=== PATIENT | male | born 1940 | race Caucasian/White ===

== ENCOUNTER 2018-10-22 18:57 | Inpatient (IN) | payer MEDICARE, OTHER ==
[2018-10-22] MEDS ORDERED: Bisacodyl 5 MG TAB PO PRN (23:28)
[2018-10-22] MEDS ORDERED: Zolpidem Tartrate 5 MG TAB PO PRN (23:28)
[2018-10-22] MEDS ORDERED: Acetaminophen 650 MG Suppository PR PRN (23:28)
[2018-10-22] MEDS ORDERED: Acetaminophen 325 MG TAB PO PRN (23:28)
[2018-10-22] MEDS ORDERED: Guaifenesin DM 100-10/5 ML UDCUP PO PRN (23:28)
[2018-10-22] MEDS ORDERED: Ondansetron PF 4 MG/2 ML Vial IVP PRN (23:28)
[2018-10-22] MEDS ORDERED: Ondansetron ODT 4 MG TAB PO PRN (23:28)
[2018-10-22] MEDS ORDERED: Sodium Chloride 0.9% 1,000 ML IV SCH (23:30)
[2018-10-23] MEDS ORDERED: Clopidogrel Bisulfate 75 MG TAB ONE (00:20)
[2018-10-23 02:20] VITALS: BMI 22.6
[2018-10-23 05:59] LABS: Anion Gap 14 mmol/L (10-20); BUN (Urea Nitrogen) 14 mg/dL (8.4-25.7); Calc. Creatinine Clearance 74 mL/min (70-130); Calcium 8.8 mg/dL (7.8-10.44); Carbon Dioxide 26 mmol/L (23-31); Chloride 86 mmol/L (98-107); Estimated GFR-MDRD Greater than 90; Glucose 135 mg/dL (83-110); Potassium 3.6 mmol/L (3.5-5.1); Sodium 122 mmol/L (136-145)
[2018-10-23 06:12] LABS: Band 4 % (5-11); Hemoglobin 13.8 g/dL (14.0-18.0); Lymphocytes 16 % (21-51); MDiff Complete? YES; Mean Corpuscular Hemoglobin 31.8 pg (27.0-31.0); Mean Corpuscular Volume 90.9 fL (78.0-98.0); Mean Platelet Volume 6.3 fL (7.4-10.4); Monocytes 8 % (0-10); Neutrophil 71 % (42-75); PLT Morphology Comment Appears Adequate; Platelet Count 283 thou/uL (130-400); RBC Morphology Normal; Reactive Lymphocytes 1 % (0-10); Red Blood Cell (RBC) Count 4.35 mill/uL (4.70-6.10); White Blood Cell (WBC) Count 8.8 thou/uL (4.8-10.8)
[2018-10-23] MEDS ORDERED: Dextrose 50% Abboject 50 ML SYRINGE SLOW IVP PRN (07:21)
[2018-10-23] MEDS ORDERED: HumaLOG 300 UNITS/3 ML VIAL SC PRN (07:21)
[2018-10-23] MEDS ORDERED: Dextrose 5% in Water 1,000 ML IV PRN (07:21)
[2018-10-23] MEDS: Famotidine/PF 20 mg/2ml Vial SLOW IVP SCH ×2 (07:51→20:41)
[2018-10-23 08:13] LABS: ALT (SGPT) 7 U/L (8-55); AST (SGOT) 16 U/L (5-34); Albumin 4.5 g/dL (3.4-4.8); Alkaline Phosphatase 80 U/L (40-150); Anion Gap 15 mmol/L (10-20); BUN (Urea Nitrogen) 13 mg/dL (8.4-25.7); Bilirubin, Total 0.7 mg/dL (0.2-1.2); Calc. Creatinine Clearance 71 mL/min (70-130); Calcium 9.3 mg/dL (7.8-10.44); Carbon Dioxide 27 mmol/L (23-31); Chloride 85 mmol/L (98-107); Estimated GFR-MDRD 89; Globulin 3.1 g/dL (2.4-3.5); Glucose 170 mg/dL (83-110); Protein, Total 7.6 g/dL (5.8-8.1); Sodium 123 mmol/L (136-145)
--- NOTE | 2018-10-23 08:17 | HP ---
CHIEF COMPLAINT: Transient ischemic attack transfer. HISTORY OF PRESENT ILLNESS: This 77-year-old male with past medical history of diabetes mellitus type 2, hypertension, hyperlipidemia, GERD. The patient is coming in with a chief complaint of not able to speak or pronounce words. So per the patient, he stated that two days prior to the day of admission, he was trying to read something of his iPhone to his and he was having difficulty pronouncing the words. The next morning, he tried to text something to his daughter and he was not able to text appropriately. He was having difficulty finding the words to text to his daughter. He tried for about 20 minutes and he was frustrated with himself, so he stopped trying to send a text message. The patient states that the next morning, he tried again and he was able to send a text message without any problem and he has been speaking fine without any difficulties; however, this was very worrisome to him, so we prompted him to come to the hospital. At this point, the patient denies any neurological symptoms. The patient states that while this whole neurological symptom was going on, he had a mild headache, which he took Excedrin for it and it actually resolved his headaches. Otherwise, the patient does not endorse any facial droop or slurring of speech, difficulty with moving his upper extremity or lower extremities. The patient denies any chest pain, palpitations, abdominal pain, dysuria, hematuria, constipation, or diarrhea. Of note, per sign-out, the patient had a previous history of CVA in the past where the patient had ischemic changes around the Broca's region. REVIEW OF SYSTEMS: All systems have been reviewed and are negative at this time. PAST MEDICAL HISTORY: Hypertension, hyperlipidemia, GERD. FAMILY HISTORY: Reviewed and noncontributory to this visit. PAST SURGICAL HISTORY: Suprapubic prostatectomy in 2009, ORIF of left ankle, tonsillectomy. PSYCHIATRIC HISTORY: No previous psych history. SOCIAL HISTORY: The patient denies any alcohol. Denies any drug use. Denies any smoking history. ALLERGIES: THE PATIENT IS ALLERGIC TO CIPROFLOXACIN, HYDROCHLOROTHIAZIDE. CURRENT MEDICATIONS: The patient takes 1. Ascorbic acid. 2. Chlorthalidone 25 mg. 3. Glipizide 5 mg. 4. Lisinopril 20 mg. 5. Metformin 500 mg. 6. Omeprazole 20 mg. PHYSICAL EXAMINATION: VITAL SIGNS: Patient's blood pressure is 172/84, heart rate is 73, respiratory rate is 21, temperature is 98.6, O2 saturation is 97. GENERAL APPEARANCE: The patient appears his stated age. Lying comfortably in bed. Does not appear to be in any acute distress. The patient is able to speak in full sentences. Does not appear to have any focal neurologic deficits at this time. The patient is alert and oriented x3. HEENT: Normocephalic, atraumatic. Pupils are equally round and reactive to light. Extraocular movements are intact. No scleral icterus. No conjunctival pallor. NECK: Trachea is midline. Full range of motion. Supple. No tenderness. No JVD is noted. LUNGS: Clear to auscultation bilaterally. No wheezing, no rales, no rhonchi appreciated. CARDIAC: Positive S1 and S2. Regular rate and rhythm. No murmurs, no gallops, no rubs appreciated. ABDOMEN: Soft, nontender, and nondistended. Positive bowel sounds in all quadrants. No peritoneal signs. No palpable masses. EXTREMITIES: The patient has 5/5 upper extremity strength and 5/5 lower extremity strength. No edema noted. The patient to have good strength and good pulses bilaterally. NEUROLOGIC: Cranial nerves II through XII grossly intact. No neurologic deficits noted. NIH Stroke Scale is zero. SKIN: Warm, dry, and intact. PSYCH: Alert, oriented x3. Normal affect. DIAGNOSTIC DATA: EK-lead EKG showed normal sinus rhythm with a rate of 75. LABS: WBC is 8.8, hemoglobin is 13.8, hematocrit is 39.6, MCV is 90.9, RDW is 11.0. Chemistry: Sodium is 122, potassium is 3.6, chloride is 86, carbon dioxide of 26, creatinine is 0.80, glucose is 135. ASSESSMENT AND PLAN: This is a 77-year-old male being admitted for 1. Difficulty with pronunciation and stroke-like symptoms, likely due to transient ischemic attack, to rule out cerebrovascular accident. At this time, we have ordered MRI of the head. We have consulted Neurology. We will get morning labs. We will get an echo, we will follow up on these labs and we will continue to follow with Neurology's recommendations. The patient has been started on aspirin, atorvastatin. We will continue the patient on these medications. We will also get PT, OT eval. 2. Hyponatremia of 122. The patient's sodium is currently 122. It is unclear if the patient's sodium could have been contributing to the patient's symptoms. At this time, we are going to work the patient up for hyponatremia. We will hold of fluids at this time until we obtain the patient's labs of serum osmo, urine osmo, and sodium in the urine, to rule out SIADH. We will find out the cause of patient's hyponatremia and we will treat accordingly. 3. Hypertension. We will continue patient on his home medications and we will monitor the patient's blood pressures closely. 4. Gastroesophageal reflux disease. We will continue patient on proton pump inhibitors. 5. Diabetes mellitus type 2. At this point, we will continue patient on insulin sliding scale. We will monitor the patient's blood glucose closely and we will try and keep the patient's glucose between 140 to 180. We will hold the patient's metformin. 6. DVT/GI prophylaxis. Job ID: [id number]
[2018-10-23] MEDS: Famotidine 20 MG TAB PO SCH ×2 (08:55→20:47)
[2018-10-23] MEDS: Multivit, Therapeutic 1 TAB PO SCH (08:56)
[2018-10-23] MEDS: Lisinopril 20 MG TAB PO SCH (08:57)
[2018-10-23] MEDS: Fish Oil 1,000 MG CAP PO SCH (08:58)
[2018-10-23] MEDS: Enoxaparin Sodium 40 MG/0.4 ML SYRINGE SC SCH (08:59)
[2018-10-23] MEDS ORDERED: Chlorthalidone 25 MG TAB PO SCH (09:00)
[2018-10-23] MEDS ORDERED: Ascorbic Acid 500 mg Chewable Tablet PO SCH (09:00)
--- NOTE | 2018-10-23 11:59 | PDOC.PN ---
- Subjective Encounter Start Date: 10/23/18 Encounter Start Time: 11:00 Awake, alert and talkative. No neurologic complaints or deficits presently. MRI not yet performed. When asked about his serum Na, he recalls being told in the past that his Na was low. Started chlorthalidone 8 or 9 days ago. - Objective Vital Signs & Weight: Vital Signs (12 hours) Temp Pulse Resp BP Pulse Ox 10/23/18 07:45 98.6 F 70 16 141/82 H 95 10/23/18 04:00 99.0 F 68 18 116/75 98 10/23/18 01:10 97.7 F 80 16 132/72 96 Weight Weight 149 lb 4 oz I&O: 10/22/18 10/23/18 10/24/18 06:59 06:59 06:59 Intake Total 360 240 Balance 360 240 Result Diagrams: 10/23/18 05:02 10/23/18 07:35 Additional Labs: Accuchecks 10/23/18 10/23/18 10:38 05:47 POC Glucose 220 H 142 H Phys Exam - Physical Examination Constitutional: NAD HEENT: PERRLA, sclera anicteric Neck: supple, full ROM Respiratory: clear to auscultation bilateral Cardiovascular: RRR Gastrointestinal: soft, non-tender Musculoskeletal: no edema Neurological: non-focal, moves all 4 limbs Psychiatric: normal affect, A&O x 3 Skin: no rash Dx/Plan (1) Hyponatremia Code(s): E87.1 - HYPO-OSMOLALITY AND HYPONATREMIA Status: Acute Comment: Possibly related to chlorthalidone. Hold for now. Request nephrology assistance. Schedule serial BMPs. Hyponatriemia may have also contributed to neurologic symptoms. Urine Na and Urine osm ordered but not yet resulted. Presently on NS at 75 ml/hr (2) Type 2 diabetes mellitus Status: Chronic (3) GERD (gastroesophageal reflux disease) Code(s): K21.9 - GASTRO-ESOPHAGEAL REFLUX DISEASE WITHOUT ESOPHAGITIS Status: Chronic Comment: Continue PPI (4) TIA (transient ischemic attack) Code(s): G45.9 - TRANSIENT CEREBRAL ISCHEMIC ATTACK, UNSPECIFIED Status: Acute Comment: Continue workup (MRI), neuro consult. Anticipate daily ASA and statin. - Plan cont current plan of care, PT/OT * See above. Do not anticipate discharge today secondary to ongoing TIA workup and hyponatremia
[2018-10-23] MEDS: HumaLOG 300 UNITS/3 ML VIAL SC PRN ×2 (12:04→17:52)
[2018-10-23 13:46] LABS: ALT (SGPT) 7 U/L (8-55); AST (SGOT) 15 U/L (5-34); Albumin 4.4 g/dL (3.4-4.8); Alkaline Phosphatase 77 U/L (40-150); Anion Gap 15 mmol/L (10-20); BUN (Urea Nitrogen) 12 mg/dL (8.4-25.7); Bilirubin, Total 0.5 mg/dL (0.2-1.2); Calc. Creatinine Clearance 75 mL/min (70-130); Calcium 9.2 mg/dL (7.8-10.44); Carbon Dioxide 25 mmol/L (23-31); Chloride 86 mmol/L (98-107); Estimated GFR-MDRD Greater than 90; Globulin 2.8 g/dL (2.4-3.5); Glucose 139 mg/dL (83-110); Potassium 3.7 mmol/L (3.5-5.1); Protein, Total 7.2 g/dL (5.8-8.1); Sodium 122 mmol/L (136-145)
--- NOTE | 2018-10-23 13:53 | MRI ---
MRI BRAIN NONCONTRAST: HISTORY: TIA. FINDINGS: There is no evidence of acute intracranial hemorrhage or infarct. Ventricles appear normal in size, shape, and position. Mild diffuse cortical trophy. Small foci of susceptibility within the left frontal cortex and subcortical white matter are in areas of subtle encephalomalacia on the FLAIR and T2 images and likely related to old ischemic insult. No mass effect or shift of midline structures. IMPRESSION: Chronic-type findings as detailed above. No acute intracranial abnormalities are demonstrated. POS: JOHN
[2018-10-23 17:10] LABS: Anion Gap 16 mmol/L (10-20); BUN (Urea Nitrogen) 12 mg/dL (8.4-25.7); Calc. Creatinine Clearance 67 mL/min (70-130); Calcium 9.1 mg/dL (7.8-10.44); Carbon Dioxide 24 mmol/L (23-31); Chloride 86 mmol/L (98-107); Estimated GFR-MDRD 83; Glucose 170 mg/dL (83-110); Potassium 3.5 mmol/L (3.5-5.1); Sodium 122 mmol/L (136-145)
[2018-10-23 18:50] LABS: Osmolality, Urine 413 mOsm/kg (300-900); Sodium, Urine 81 mmol/L (Not Available)
[2018-10-23 20:08] LABS: ALT (SGPT) 8 U/L (8-55); AST (SGOT) 15 U/L (5-34); Alkaline Phosphatase 69 U/L (40-150); Anion Gap 12 mmol/L (10-20); BUN (Urea Nitrogen) 13 mg/dL (8.4-25.7); Bilirubin, Total 0.3 mg/dL (0.2-1.2); Calc. Creatinine Clearance 71 mL/min (70-130); Calcium 8.6 mg/dL (7.8-10.44); Carbon Dioxide 26 mmol/L (23-31); Chloride 87 mmol/L (98-107); Estimated GFR-MDRD 89; Globulin 2.5 g/dL (2.4-3.5); Glucose 166 mg/dL (83-110); Potassium 3.3 mmol/L (3.5-5.1); Protein, Total 6.5 g/dL (5.8-8.1); Sodium 122 mmol/L (136-145)
[2018-10-23] MEDS: Atorvastatin Calcium 40 MG TAB PO SCH (20:47)
--- NOTE | 2018-10-23 20:56 | ULT ---
CAROTID ULTRASOUND: 10/23/18 HISTORY: Transient ischemic attack. COMPARISON: None. TECHNIQUE: Barnett scale, color flow, doppler imaging with spectral waveform analysis performed of the carotid and vertebral arteries. FINDINGS: RIGHT CAROTID: There is calcified plaque in the right carotid bifurcation and proximal internal carotid arteries. Pe ak systolic velocity in the common carotid artery is 139.6 cm/s. Peak systolic velocity in the inter nal carotid artery is 85.4 cm/s. Systolic ICA/CCA ratio is 0.61. LEFT CAROTID: Atherosclerotic disease in the left carotid bifurcation. Peak systolic velocity in the common carotid artery is 144.0 cm/s. Peak systolic velocity in the internal carotid artery is 131.2 cm/s. Systolic ICA/CCA ratio is 0.91. Antegrade flow in bilateral vertebral arteries. IMPRESSION: Increased velocities in both carotid arteries suggesting moderate (50-69%) stenosis. Better interroga tion with CT angiogram of the neck is recommended. POS: JOHN
[2018-10-23 22:01] LABS: Anion Gap 13 mmol/L (10-20); BUN (Urea Nitrogen) 13 mg/dL (8.4-25.7); Calc. Creatinine Clearance 76 mL/min (70-130); Calcium 8.8 mg/dL (7.8-10.44); Carbon Dioxide 25 mmol/L (23-31); Chloride 85 mmol/L (98-107); Estimated GFR-MDRD Greater than 90; Glucose 132 mg/dL (83-110); Magnesium 2.2 mg/dL (1.6-2.6); Potassium 3.2 mmol/L (3.5-5.1); Sodium 120 mmol/L (136-145)
--- NOTE | 2018-10-23 22:40 | CON ---
DATE OF CONSULTATION: TYPE OF CONSULTATION: Nephrology. REASON FOR CONSULTATION: Hyponatremia. HISTORY OF PRESENT ILLNESS: This is a 77-year-old gentleman, being followed at [facility] who presented to the hospital with altered mental status. The patient was noted to have a sodium of 122. The patient had altered mental status as well. The patient was started on normal saline without any improvement in sodium, I was consulted at 2 p.m. At this time, the patient denies no headache, numbness, tingling, or weakness. Denies any nausea, vomiting, or chest pain. PAST MEDICAL HISTORY: Hypertension, GERD, hyperlipidemia, history of prostate cancer, left ankle ORIF, tonsillectomy, history of prostatectomy and prostate cancer, lymph nodes negative. SOCIAL HISTORY: No alcohol or drug use. FAMILY HISTORY: Negative for ESRD. ALLERGIES: REVIEWED. MEDICATIONS: Home medication list reviewed. REVIEW OF SYSTEMS: A 15-point review of system was performed, negative except what is noted above. GENERAL: HEAD: NECK: No swelling or lumps. NOSE: No epistaxis or discharge. EYES: No diplopia or pain. 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 NEUROPSYCHIATIC SYSTEMS: No suicidal ideation. No ideation. SKIN: Denies any rash or ulcer. CONSTITUTIONAL: No fever or chills. PHYSICAL EXAMINATION: GENERAL: The patient is awake and alert. VITAL SIGNS: Afebrile, pulse 75, breathing 16, blood pressure 147/80. GENERAL APPEARANCE AND MENTAL STATUS: Fair. HEAD/NECK: Normocephalic. Atraumatic. EYES: EOMI. No deformity. EARS: Clear. No ulcers. NOSE: Intact. No lesions. MOUTH: Clear. No discharge. THROAT: Clear. No exudate. LUNGS: Clear. No crackles. CARDIAC: S1, S2. No rub. ABDOMEN: Benign. Bowel sounds positive. GENITALIA/RECTUM: Francis absent. BACK/EXTREMITIES: Edema 0+. NEUROLOGICAL: Alert and motor intact. SKIN: LYMPHATICS: LABORATORY DATA: Labs show sodium 122 and serum osmolality 275 ASSESSMENT AND PLAN: 1. Hyponatremia, most likely because of syndrome of inappropriate antidiuretic hormone secretion in the setting of omeprazole and chlorthalidone, which I will stop. Follow sodium every 2 hours. 2. Hypertension, stable. 3. Add calcium-channel saray. No indication for dialysis at this time. Job ID: [id number]
[2018-10-23] MEDS ORDERED: Potassium Chloride 20 MEQ TAB PO SCH (23:00)
[2018-10-23] MEDS ORDERED: Tolvaptan 15 MG TAB PO SCH (23:00)
--- NOTE | 2018-10-24 01:41 | CON ---
DATE OF CONSULTATION: 10/23/2018 CHIEF COMPLAINT: TIA. HISTORY OF PRESENT ILLNESS: The patient is a 77-year-old man, who reports that 2 days ago he had an incidence where he was in just texting his daughter, he could hear the words, but he had trouble composing the text, he kept putting the wrong words and difficulty connecting data. He also had moderate headache which lasted 2 hours. He took Excedrin and this headache was on top of his head. He had a similar event on 07-04-18. He was reading an article, and he couldn't connect words, or read it right. This lasted 20 to 30 minutes. No history of weakness, numbness, vision changes, dizziness or associated weakness. He also checked his blood pressures, he did have systolics in the 170s and recently after he went to his physician, changes were made to his medications, his blood pressures are better in the 120s. 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 PAST MEDICAL HISTORY: Previous medical histories are hypertension, diabetes, and gastroesophageal reflux disease. He has had GI bleeds in the past and was told he had slits in the stomach which have improved after omeprazole was started and he has premature atrial contractions. SOCIAL HISTORY: His had dementia. He used to work in [employer]. 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 He drinks one beer per week or month. He last smoked 30 years ago. He is a primary caregiver for his . MEDICATIONS: As noted in the chart and he does take aspirin 81 mg per day for his heart for several years. ALLERGIES: HE IS ALLERGIC TO CIPRO AND HYDROCHLOROTHIAZIDE. HE HAD LEG MUSCLE CRAMPS. FAMILY HISTORY: His mother at 66 from Hodgkin's. Father at 84 from stroke and atherosclerosis. He has 2 daughters 50 and 45, both are healthy. PAST SURGICAL HISTORY: He has had suprapubic prostatectomy in 2009 and fracture repair of the left ankle and tonsillectomy. REVIEW OF SYSTEMS: PULMONARY: Normal. CARDIAC: Positive premature atrial contractions. NEUROLOGICAL: Positive for difficulty with speech and writing. PSYCHIATRIC: Negative. GI: Positive for gastroesophageal reflux disease. URINARY: Positive for urinary frequency due to prostate problems. DERMATOLOGIC: Normal. LABORATORY DATA: White count 8.8, hemoglobin 13.8, hematocrit 39.6, platelets 283. Sodium 122, potassium 3.7, chloride 86, bicarb 25, BUN 12, creatinine 0.79. His MRI was complicated. MRI report shows chronic finding with small focus of susceptibility within the left frontal cortex and subcortical white matter in areas of subtle encephalomalacia likely due to old ischemic insult. There were no acute intracranial abnormalities noted. PHYSICAL EXAMINATION: VITAL SIGNS: Blood pressure 141/82, pulse 70, temperature 98.6, respiratory rate 16. GENERAL APPEARANCE: Well-built, well-nourished, very energetic gentleman, sitting up in bed. CHEST: Clear vesicular breathing. CARDIOVASCULAR: S1 and S2 heard. No murmurs. ABDOMEN: Soft. No organomegaly. NEUROLOGIC: Higher intellectual functions are normal. Cranial nerves 2 through 12, normal extraocular movements. Normal pupillary reaction. No facial asymmetry. Tongue midline. No atrophy noted. Normal sensation of face bilaterally. Normal elevation of palate. Motor examination, bulk normal. Tone normal. Strength 5/ 5 throughout in upper and lower extremities in iliopsoas, hamstrings, quadriceps, ankle dorsiflexion, plantar flexion, deltoid, biceps, triceps, wrist extension and flexion, and finger extension and flexion. Deep tendon reflexes are 2+ throughout in upper and lower extremities. Sensory, normal to touch and proprioception. Cerebellar, normal [id number] and [id number]. IMPRESSION: The patient with transient ischemic attack most likely related to his blood pressure fluctuations and he has the same symptoms since June and this is mostly related to his language function and particularly difficulty with typing or reading. His MRI does not show any evidence of acute infarct. His neurological examination is normal. TREATMENT RECOMMENDATIONS: Please complete his workup including echocardiogram if not performed recently and carotid dopplers and if all these negative, the patient be able to be discharged home under the care of his athletic training internship and please increase his aspirin to 325 mg per day. We will see him as needed. Job ID: [id number] [facility]
[2018-10-24 05:11] LABS: #Basophils 0.1 thou/uL (0.0-0.2); #Eosinphils 0.2 thou/uL (0.0-0.7); #Monocytes 0.9 thou/uL (0.11-0.59); #Neutrophils 6.4 thou/uL (1.40-6.50); %Basophils 0.6 % (0.0-1.0); %Eosinophils 2.3 % (0.0-10.0); %Lymphocytes 20.9 % (21.0-51.0); %Neutrophils 67.2 % (42.0-75.0); Hemoglobin 13.7 g/dL (14.0-18.0); Mean Corpuscular HGB CONC 35.4 g/dL (32.0-36.0); Mean Corpuscular Hemoglobin 31.9 pg (27.0-31.0); Mean Corpuscular Volume 90.2 fL (78.0-98.0); Mean Platelet Volume 6.2 fL (7.4-10.4); Platelet Count 289 thou/uL (130-400); RBC Distribution Width 10.9 % (11.5-14.5); Red Blood Cell (RBC) Count 4.28 mill/uL (4.70-6.10); White Blood Cell (WBC) Count 9.6 thou/uL (4.8-10.8)
[2018-10-24 05:26] LABS: Anion Gap 15 mmol/L (10-20); BUN (Urea Nitrogen) 16 mg/dL (8.4-25.7); Calc. Creatinine Clearance 71 mL/min (70-130); Calcium 9.1 mg/dL (7.8-10.44); Carbon Dioxide 24 mmol/L (23-31); Cardiac Risk 5.1 (Less than 4.5); Chloride 89 mmol/L (98-107); Cholesterol 224 mg/dl (< 200 Desired); Estimated GFR-MDRD 90; Glucose 151 mg/dL (83-110); HDL Cholesterol 44 mg/dL (>60 Neg Risk); LDL Cholesterol, Calculated 129 mg/dL; Potassium 3.9 mmol/L (3.5-5.1); Sodium 124 mmol/L (136-145); Triglycerides 255 mg/dL (Less than 150)
[2018-10-24] MEDS: HumaLOG 300 UNITS/3 ML VIAL SC PRN ×3 (06:20→17:20)
--- NOTE | 2018-10-24 10:01 | PRG ---
DATE OF SERVICE: 10/24/2018 SUBJECTIVE: The patient is seen and examined at the bedside. He is feeling better. He does not have much complaints to offer. OBJECTIVE: VITAL SIGNS: Blood pressure 165/105, temperature is 98.3, respiratory rate is 14, pulse is 83, O2 saturation is 96% on room air. HEENT: His head is atraumatic and normocephalic. Eyes are PERRLA. Sclerae are nonicteric. Oral mucosa is moist. NECK: Supple. No lymphadenopathy. Thyroid is not palpable. LUNGS: Clear. HEART: S1 and S2, normal. No S3. No S4. No murmur. ABDOMEN: Soft, nontender, nondistended. Bowel sounds are present. No organomegaly. EXTREMITIES: No clubbing, cyanosis, or edema. NEUROLOGIC: He is alert and oriented x4. There is no any motor or sensory deficits present. Cranial nerves are intact. LABORATORY DATA: Labs showed white count of 9.6, hemoglobin 13.7, hematocrit 32.6, platelet count is 289. Sodium of 124, potassium 3.9, chloride 89, CO2 of 24, BUN 16, creatinine 0.83, glycemia is ranging from 132 to 170, triglycerides 255, total cholesterol 224, LDL 129, and HDL 44. Urine osmolality 413 and his sodium in the urine is 81. IMPRESSION: 1. Hyponatremia felt to be syndrome of inappropriate antidiuretic hormone secretion. Dr. Manzo is managing. The patient is on fluid restriction orally to 800 mL per 24 hours. We will continue that. We will continue serial levels of sodium per his order. 2. Carotid artery stenosis changes on ultrasound. We will request CT angiogram for tomorrow morning. 3. Type 2 diabetes mellitus. We will make some adjustments to his regimen to get better control of his glycemia. 4. Transient ischemic attack, acute, resolved. Seen by neurologist, who recommends to continue his workup. We are obtaining his echocardiogram results from previous facility, where he had his echo done recently and this is still pending. He is on increased dose of aspirin to 325 mg once a day, and he is started on high dose of atorvastatin 80 mg once a day. We will continue his PT and OT. Continue his fluid restriction orally as per Dr. Manzo's order and CT angiogram of his neck will be done tomorrow morning. Job ID: [id number]
[2018-10-24] MEDS: Fish Oil 1,000 MG CAP PO SCH (10:04)
[2018-10-24] MEDS: Multivit, Therapeutic 1 TAB PO SCH (10:05)
[2018-10-24] MEDS: Enoxaparin Sodium 40 MG/0.4 ML SYRINGE SC SCH (10:05)
[2018-10-24] MEDS: Lisinopril 20 MG TAB PO SCH (10:07)
[2018-10-24] MEDS: Famotidine/PF 20 mg/2ml Vial SLOW IVP SCH ×2 (10:08→20:21)
[2018-10-24] MEDS: Famotidine 20 MG TAB PO SCH ×2 (11:53→20:21)
[2018-10-24 13:09] LABS: Anion Gap 14 mmol/L (10-20); BUN (Urea Nitrogen) 15 mg/dL (8.4-25.7); Calc. Creatinine Clearance 65 mL/min (70-130); Calcium 9.6 mg/dL (7.8-10.44); Carbon Dioxide 26 mmol/L (23-31); Chloride 89 mmol/L (98-107); Estimated GFR-MDRD 81; Glucose 175 mg/dL (83-110); Potassium 3.9 mmol/L (3.5-5.1); Sodium 125 mmol/L (136-145)
--- NOTE | 2018-10-24 13:51 | PRG ---
DATE OF SERVICE: 10/24/2018 SUBJECTIVE: A 77-year-old gentleman, being seen for hyponatremia. The patient denies any nausea, vomiting, or chest pain. OBJECTIVE: CONSTITUTIONAL: On examination, the patient is awake, alert. VITAL SIGNS: Afebrile, pulse 65, breathing is 16, and blood pressure 161/85. GENERAL APPEARANCE AND MENTAL STATUS: Fair. HEAD/NECK: Normocephalic. Atraumatic. EYES: EOMI. No deformity. EARS: Clear. No ulcers. NOSE: Intact. No lesions. MOUTH: Clear. No discharge. THROAT: Clear. No exudate. LUNGS: Clear. No crackles. CARDIAC: S1, S2. No rub. ABDOMEN: Benign. Bowel sounds positive. GENITALIA/RECTUM: Francis absent. BACK/EXTREMITIES: Edema 0+. NEUROLOGICAL: Alert and motor intact. LABORATORY DATA: Labs show sodium is 125. ASSESSMENT AND PLAN: 1. Hyponatremia, improved. 2. Chronic kidney disease, stage 2, stable. 3. Hypertension, stable. Increase dose of lisinopril as needed and add amlodipine. Job ID: [id number]
--- NOTE | 2018-10-24 14:58 | PRG ---
DATE OF SERVICE: 10/24/2018 CHIEF COMPLAINT: Transient changes in his language function. INTERVAL HISTORY: The patient reports he is doing well. He stated that his triglycerides are elevated usually when he has abnormal glucose levels and elevated hemoglobin A1c. Overall, he is feeling well. LABORATORY DATA: Current lab reports; white count 9.6, hemoglobin 13.7, hematocrit 38.6, and platelets are 289. Chemistry; sodium 125, potassium 3.9, chloride 89, bicarb 26, carbon dioxide 26, BUN 15, creatinine 0.91. Triglycerides are at 255, and cholesterol 224, and he had a carotid Doppler study completed, which showed increased velocities in both carotid arteries suggesting moderate 50% to 69% stenosis. PHYSICAL EXAMINATION: VITAL SIGNS: The patient's blood pressure was 161/85, pulse rate is 83, and temperature 98.3. GENERAL APPEARANCE: Well-built and well-nourished gentleman, who is fairly active. NEUROLOGIC: Cranial nerves; no facial asymmetry noted. Normal extraocular movements. Tongue midline. Motor; bulk, normal and tone, normal. Strength is 5/5 in upper and lower extremities. IMPRESSION: The patient is a 77-year-old man, who is experiencing transient language difficulties and had two such episodes, one in June and one currently. His examination is normal. His MRI scan is negative for any acute ischemic event. Based on the carotid doppler results, it is thapa to complete a CT angiogram of head and neck. RECOMMENDATIONS: 1. CTA of the head and neck. 2. Increase aspirin to 325 mg per day. 3. I advised the patient to follow up with his tongsman once he was discharged from here and he needs to have further workup for his premature atrial contractions. Please call Neurology if you have any further questions. Job ID: [id number]
--- NOTE | 2018-10-24 15:07 | CT ---
CT HEAD WITHOUT IV CONTRAST CT ANGIOGRAM HEAD WITH IV CONTRAST AND 3D RECONSTRUCTIONS CT ANGIOGRAM NECK WITH IV CONTRAST AND 3D RECONSTRUCTIONS: DATE: 10/24/2018. HISTORY: Bilateral carotid stenosis noted on ultrasound examination. Recent MRI obtained 1 day ago demonstrat e no acute infarction. FINDINGS: NONCONTRAST CT HEAD: There are low-density areas seen in the periventricular white matter greater in the left cerebral hem isphere which are nonspecific but likely reflective of mild chronic small-vessel ischemic changes. T here is no evidence of an acute infarction, hemorrhage, mass effect, or midline shift. The ventricul ar system is normal in size, shape, and position. There is mild cerebral volume loss. The visualize d paranasal sinuses and mastoid air cells are clear. Calvarial structures are intact. CT ANGIOGRAM HEAD WITH IV CONTRAST AND 3D RECONSTRUCTIONS: There are atherosclerotic calcifications and plaque seen within the carotid siphons bilaterally with mild atherosclerotic irregularity involving the M1 segment of the right middle cerebral artery, but n o focal significant stenosis is seen involving the bilateral middle cerebral or anterior cerebral art eries. The distal bilateral vertebral arteries, basilar artery, as well as posterior cerebral arteri es are patent. No branch occlusion is seen No aneurysm is seen within the limitations of the techni que of this examination. 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 CT ANGIOGRAM NECK WITH IV CONTRAST AND 3D RECONSTRUCTIONS: Vascular calcifications are seen in the thoracic aorta. There is a common origin of the innominate a rtery and left common carotid artery. The visualized left subclavian artery is patent. The innomina te artery, right subclavian artery, and bilateral common carotid arteries are patent. There is atherosclerotic plaque and calcification seen involving the carotid artery bifurcations bila terally and proximal internal carotid arteries bilaterally. There is less than 50% maximal stenosis involving the left internal carotid artery based on NASCET criteria. There is a greater degree of atherosclerotic irregularity involving the distal right common carotid a rtery and proximal right internal carotid artery. Although the degree of stenosis is greater involvi ng the distal common carotid artery, the degree of stenosis is less than 50% according to NASCET crit eria. There is mild atherosclerotic irregularity involving the distal right common carotid artery wh ich is otherwise patent. The bilateral external carotid arteries are patent. The bilateral vertebra l arteries are codominant and patent. There is soft tissue density seen in the region of the AP window with this area measuring approximate ly 3 cm transverse x 1.9 cm AP with associated calcifications. There is also an area of soft tissue density in a right peritracheal location with associated calcifications. Findings may be related to enlarged calcified mediastinal lymph nodes from prior granulomatous disease. A visually enlarged pa rtially calcified lymph node is seen posterior to the trachea in the superior mediastinum. Visualized lung apices are clear. IMPRESSION: 1. Atherosclerotic plaque and irregularity involving the distal common carotid arteries and carotid artery bifurcations as well as the most proximal internal carotid arteries bilaterally, but the degre e of narrowing measures less than 50% according to NASCET criteria. 2. Codominant and patent bilateral vertebral arteries. 3. No significant focal stenosis or branch occlusion seen involving the [place] or vertebro basilar system. 4. No acute intracranial abnormality demonstrated. 5. Enlarged partially calcified mediastinal lymph nodes which may be related to prior granulomatous disease. Other etiologies such as sarcoidosis or treated lymphoma could give a similar appearance. C linical correlation is suggested, and if indicated CT thorax could be performed. POS: JOHN
[2018-10-24] MEDS: Senokot S 8.6-50 MG TAB PO PRN (15:28)
[2018-10-24 18:42] LABS: Anion Gap 16 mmol/L (10-20); BUN (Urea Nitrogen) 19 mg/dL (8.4-25.7); Calc. Creatinine Clearance 66 mL/min (70-130); Calcium 9.6 mg/dL (7.8-10.44); Carbon Dioxide 24 mmol/L (23-31); Chloride 92 mmol/L (98-107); Estimated GFR-MDRD 82; Glucose 141 mg/dL (83-110); Potassium 3.9 mmol/L (3.5-5.1); Sodium 128 mmol/L (136-145)
[2018-10-24] MEDS: Atorvastatin Calcium 40 MG TAB PO SCH (20:21)
[2018-10-25 05:40] LABS: Anion Gap 13 mmol/L (10-20); BUN (Urea Nitrogen) 19 mg/dL (8.4-25.7); Calc. Creatinine Clearance 64 mL/min (70-130); Calcium 9.1 mg/dL (7.8-10.44); Carbon Dioxide 28 mmol/L (23-31); Chloride 90 mmol/L (98-107); Estimated GFR-MDRD 79; Glucose 151 mg/dL (83-110); Potassium 3.9 mmol/L (3.5-5.1); Sodium 127 mmol/L (136-145)
[2018-10-25] MEDS: HumaLOG 300 UNITS/3 ML VIAL SC PRN ×3 (06:13→17:38)
[2018-10-25] MEDS: Famotidine 20 MG TAB PO SCH ×2 (09:12→21:21)
[2018-10-25] MEDS: Multivit, Therapeutic 1 TAB PO SCH (09:12)
[2018-10-25] MEDS: Fish Oil 1,000 MG CAP PO SCH (09:12)
[2018-10-25] MEDS: Senokot S 8.6-50 MG TAB PO PRN (09:12)
[2018-10-25] MEDS: Lisinopril 20 MG TAB PO SCH (09:14)
[2018-10-25] MEDS: Enoxaparin Sodium 40 MG/0.4 ML SYRINGE SC SCH (09:14)
[2018-10-25] MEDS: Famotidine/PF 20 mg/2ml Vial SLOW IVP SCH (09:15)
[2018-10-25 09:47] LABS: Anion Gap 15 mmol/L (10-20); BUN (Urea Nitrogen) 18 mg/dL (8.4-25.7); Calc. Creatinine Clearance 64 mL/min (70-130); Calcium 9.1 mg/dL (7.8-10.44); Carbon Dioxide 23 mmol/L (23-31); Chloride 91 mmol/L (98-107); Estimated GFR-MDRD 79; Glucose 262 mg/dL (83-110); Potassium 3.8 mmol/L (3.5-5.1); Sodium 125 mmol/L (136-145)
--- NOTE | 2018-10-25 10:21 | PRG ---
DATE OF SERVICE: 10/25/2018 SUBJECTIVE: A 77-year-old gentleman being seen for hyponatremia. The patient denies nausea, vomiting or chest pain. OBJECTIVE: CONSTITUTIONAL: Awake, alert, in no acute distress. VITAL SIGNS: Afebrile. Pulse 75, breathing 16, blood pressure 127/89. GENERAL APPEARANCE AND MENTAL STATUS: Fair. HEAD/NECK: Normocephalic. Atraumatic. EYES: EOMI. No deformity. EARS: Clear. No ulcers. NOSE: Intact. No lesions. MOUTH: Clear. No discharge. THROAT: Clear. No exudate. LUNGS: Clear. No crackles. CARDIAC: S1, S2. No rub. ABDOMEN: Benign. Bowel sounds positive. GENITALIA/RECTUM: Francis absent. BACK/EXTREMITIES: Edema 0+. NEUROLOGICAL: Alert and motor intact. LABORATORY DATA: Sodium is 127, creatinine 0.9. ASSESSMENT AND PLAN: 1. Hyponatremia due to SIADH. Continue fluid restriction. Recheck sodium. 2. Hypertension, stable. 3. Medication based on GFR appropriate. Job ID: [id number]
[2018-10-25] MEDS ORDERED: Tolvaptan 15 MG TAB PO SCH (11:15)
--- NOTE | 2018-10-25 14:11 | PRG ---
DATE OF SERVICE: 10/25/2018 SUBJECTIVE: The patient is seen and examined at bedside. Clinically, he is doing quite well. He does not have much complaints to offer. OBJECTIVE: VITAL SIGNS: Blood pressure is 129/88, pulse is 79, temperature is 98.9, respiratory rate is 18, and O2 saturation is 95% on room air. HEENT: His head is atraumatic and normocephalic. Eyes are PERRLA. Sclerae are nonicteric. Oral mucosa is moist. NECK: Supple. No lymphadenopathy. Thyroid is not palpable. LUNGS: Clear. HEART: S1 and S2 normal. No S3. No S4. No any murmur. ABDOMEN: Soft, nontender. Bowel sounds are present. No organomegaly. EXTREMITIES: No clubbing, cyanosis, or edema. NEUROLOGIC: He is alert and oriented x4. There is no any sensory or motor deficit present. Cranial nerves are intact. LABORATORY DATA: Labs pending. The morning labs showed sodium of 127, potassium 3.9, chloride 90, glucose 151, and the rest is within normal limits and a new set of BMP is pending. IMPRESSION: 1. Hyponatremia, syndrome of inappropriate antidiuretic hormone secretion. His sodium is still below 130. As soon as we reach to 130 and above, he will be released home. Clinically, he does not have any significant issues or symptoms. 2. Carotid artery stenosis. The CT angiogram showed stenotic lesions bilaterally in both carotid systems less than 50%, so we are going to treat him with high dose of statin and no intervention at this point. 3. Type 2 diabetes mellitus. 4. Transient ischemic attack with a normal Neurology workup. Aspirin is 325 mg a day. Continue PT, OT, and fluid restriction per [employer]. He should be ready to go home as soon as his sodium reaches 130 or above. Job ID: [id number]
--- NOTE | 2018-10-25 15:01 | PRG ---
DATE OF SERVICE: 10/23/2018 ADDENDUM: I spoke with the patient's clinical picture was compatible with SIADH, fluid restriction 800 mL placed. Additionally, recommends discontinuation of chlorthalidone. to recheck this evening and in the morning. The patient is asymptomatic. Job ID: [id number]
[2018-10-25 18:44] LABS: Anion Gap 16 mmol/L (10-20); BUN (Urea Nitrogen) 23 mg/dL (8.4-25.7); Calc. Creatinine Clearance 62 mL/min (70-130); Calcium 9.7 mg/dL (7.8-10.44); Carbon Dioxide 24 mmol/L (23-31); Chloride 95 mmol/L (98-107); Estimated GFR-MDRD 77; Glucose 143 mg/dL (83-110); Magnesium 3.2 mg/dL (1.6-2.6); Potassium 3.7 mmol/L (3.5-5.1); Sodium 131 mmol/L (136-145)
[2018-10-25] MEDS: Atorvastatin Calcium 40 MG TAB PO SCH (21:21)
[2018-10-26 05:28] LABS: Anion Gap 15 mmol/L (10-20); BUN (Urea Nitrogen) 18 mg/dL (8.4-25.7); Calc. Creatinine Clearance 70 mL/min (70-130); Calcium 9.2 mg/dL (7.8-10.44); Carbon Dioxide 25 mmol/L (23-31); Chloride 95 mmol/L (98-107); Estimated GFR-MDRD 87; Glucose 171 mg/dL (83-110); Potassium 3.5 mmol/L (3.5-5.1); Sodium 131 mmol/L (136-145)
[2018-10-26] MEDS: HumaLOG 300 UNITS/3 ML VIAL SC PRN (06:13)
[2018-10-26 07:36] VITALS: TEMP 97.8
[2018-10-26] MEDS: Enoxaparin Sodium 40 MG/0.4 ML SYRINGE SC SCH (08:11)
[2018-10-26] MEDS: Fish Oil 1,000 MG CAP PO SCH (08:12)
[2018-10-26] MEDS: Famotidine 20 MG TAB PO SCH (08:12)
[2018-10-26] MEDS: Multivit, Therapeutic 1 TAB PO SCH (08:12)
[2018-10-26] MEDS ORDERED: Aspirin 325 MG TAB PO SCH (09:00)
[2018-10-26] MEDS ORDERED: Amlodipine 5 MG TAB PO SCH (11:00)
[2018-10-26 11:49] VITALS: BP 148/94
--- NOTE | 2018-10-26 12:33 | PRG ---
DATE OF SERVICE: SUBJECTIVE: A 77-year-old gentleman being seen for hyponatremia. The patient denies nausea, vomiting, and chest pain. OBJECTIVE: CONSTITUTIONAL: Awake, alert, in no acute distress. VITAL SIGNS: Afebrile. Pulse 69, breathing 16, blood pressure 149/97. GENERAL APPEARANCE AND MENTAL STATUS: Fair. HEAD/NECK: Normocephalic. Atraumatic. EYES: EOMI. No deformity. EARS: Clear. No ulcers. NOSE: Intact. No lesions. MOUTH: Clear. No discharge. THROAT: Clear. No exudate. LUNGS: Clear. No crackles. CARDIAC: S1, S2. No rub. ABDOMEN: Benign. Bowel sounds positive. GENITALIA/RECTUM: Francis absent. BACK/EXTREMITIES: Edema 0+. NEUROLOGICAL: Alert and motor intact. SKIN: LYMPHATICS: LAB: Hemoglobin 13.7, creatinine 0.85, sodium 131. ASSESSMENT AND PLAN: 1. Hyponatremia, resolved. 2. Hypertension, stable. 3. Medication based on GFR appropriate. The patient will follow up to see me in one week. Job ID: [id number]
--- NOTE | 2018-10-26 14:06 | DIS ---
DATE OF ADMISSION: 10/24/2018 DATE OF DISCHARGE: 10/26/2018 DIAGNOSES: At the time of discharge, 1. Transient ischemic attack. 2. Carotid artery stenosis bilaterally, less than 50% per CT angiogram. 3. Hyponatremia, secondary to syndrome of inappropriate antidiuretic hormone. 4. Type 2 diabetes mellitus. 5. Hypertension. 6. Hyperlipidemia. 7. Gastroesophageal reflux disease. CONSULTANTS: 1. Dr. Jolene Vital, Neurology Service. 2. Dr. Alex Manzo, Nephrology Service. HOSPITAL COURSE: The patient is a 77-year-old male with past medical history of diabetes mellitus type 2, hypertension, hyperlipidemia, and GERD, who had an episode of inability to speak or pronounce words for a couple of days prior to this admission, was having difficulty finding the words to text to his daughter. Next morning, he was able to speak fine without any difficulties, but he was worrisome and he came to the emergency room for further evaluation. The patient stated that while he had those issues, he had mild headache and he took Excedrin, which helped resolve the headache. He did not endorse any facial droop or slurred speech, difficulty moving his extremities. He denied any chest pain, palpitation, abdominal pain, dysuria, hematuria, constipation, or diarrhea. Of note, per sign out, the patient had previous history of CVA in the past, where the patient had ischemic changes around the Broca region. While in the emergency room getting evaluated, his blood pressure was 172/84, pulse was 73, respiratory rate 21, temperature 98.6, and O2 saturation 97%. His neurological examination did not reveal any significant changes. EKG, 12-lead showed normal sinus rhythm with rate of 75 beats per minute. He had MRI of the brain done, which showed chronic type findings, which were consistent with small foci of susceptibility within the left frontal cortex and subcortical white matter, with subtle encephalomalacia on the FLAIR and T2 images. They were probably related to old ischemic insult. There was no mass effect or shift of midline structure. There was mild diffuse cortical atrophy. The patient got admitted to the Stroke Unit for further evaluation of his symptoms. He was started on aspirin and atorvastatin 80 mg nightly, PT and OT evaluation. His hyponatremia was at 122, so he underwent workup which showed most likely SIADH. The patient was seen by director of rehabilitation and wellness, who recommended to do restriction of oral fluid intake to 800 mL per 24 hours and treatment with tolvaptan. His workup showed increased velocities in both carotid arteries suggesting moderate 50% to 69% stenosis, which was followed by CT angiogram, which showed atherosclerotic plaque and irregularity involving the distal common carotid arteries and carotid artery bifurcations as well as the most proximal internal carotid artery bilaterally, but the degree of narrowing measured less than 50% according to NASCET criteria. His bilateral vertebral arteries were codominant and patent and there was no any significant focal stenosis or branch occlusion involving the [place] or vertebrobasilar system. The patient was seen by Dr. Vital for Neurology evaluation. She recommended to increase his aspirin to 325 mg once a day. During this hospitalization, he had some PACs on his cardiac monitoring, but according to him, he had them before. We tried to use metoprolol, but he refused to take it and clinically, he did very well. His lisinopril and chlorthalidone were stopped since this was possible cause of his hyponatremia, he was placed on amlodipine 2.5 mg once a day since he started having some blood pressure elevation at the end of this stay. Also, we held his glipizide and metformin and used just sliding scale to cover his glycemia. PHYSICAL EXAMINATION: GENERAL/VITAL SIGNS: His blood pressure is 148/94, respiratory rate is 22, O2 saturation 98, pulse is 89, and temperature is 97.8. He was seen and examined before he was discharged. LUNGS: Clear. HEART: S1 and S2 normal. No S3. No S4. No any murmur. ABDOMEN: Soft and nontender. Bowel sounds are present. No organomegaly. NEUROLOGIC: He is alert and oriented x4. There is no any sensory or motor deficit present. Cranial nerves are intact. DISPOSITION: He is discharged home in good condition with recommendation to stay on diabetic diet at 2000 calories. ACTIVITIES: As tolerated. MEDICATIONS: At the time of discharge, 1. Amlodipine 2.5 mg once a day. 2. Aspirin 325 mg once a day. 3. Atorvastatin 80 mg nightly. 4. Ascorbic acid one tablet a day. 5. Glipizide 1.5 tablet a day. 6. Metformin 500 twice a day. 7. once a day. 8. Fish oil one capsule once a day. 9. Multivitamin one capsule once a day. FOLLOWUP: He is going to have BMP done in two days and the results will be faxed to Dr. Manzo's office. He will follow up with his primary care physician in [address] Manzo is going to call him back for the followup appointment for his hyponatremia evaluation. He will stay on 800 mL of oral fluid restriction. TIME SPENT: Discharge time is more than 30 minutes. Job ID: [id number]
[2018-10-27] MEDS ORDERED: Amlodipine 5 MG TAB PO SCH (09:00)
== END 2018-10-26 13:13 | disposition home or self-care (01) | DRG 68 ==
LOC: ERS 18:57 → 2SE 10-23 → OBSVTOIN 10-24 17:13
PROVIDERS: ADMIT Internal Medicine; ATTEND Internal Medicine
DX: I65.23 Occlusion and stenosis of bilateral carotid arteries (principal); E22.2 Syndrome of inappropriate secretion of antidiuretic hormone; I12.9 Hypertensive chronic kidney disease with stage 1 through stage 4 chronic kidney disease, or unspecified chronic kidney disease; E11.22 Type 2 diabetes mellitus with diabetic chronic kidney disease; N18.2 Chronic kidney disease, stage 2 (mild); I49.1 Atrial premature depolarization; T47.1X5A Adverse effect of other antacids and anti-gastric-secretion drugs, initial encounter; T50.2X5A Adverse effect of carbonic-anhydrase inhibitors, benzothiadiazides and other diuretics, initial encounter; E78.5 Hyperlipidemia, unspecified; K21.9 Gastro-esophageal reflux disease without esophagitis; Z86.73 Personal history of transient ischemic attack (TIA), and cerebral infarction without residual deficits; Z85.46 Personal history of malignant neoplasm of prostate; Z79.84 Long term (current) use of oral hypoglycemic drugs; Z79.82 Long term (current) use of aspirin
CPT/HCPCS: 36415; 36416; 70496; 70498; 70551; 80048; 80061; 83735; 83930; 83935; 84300; 85007; 85025; 85027; 93005; 93880; 99285; G8978-GP-CK; G8979-GP-CK; G8980-GP-CK; G8987-GO-CH; G8988-GO-CH; G8989-GO-CH; G8996-GN-CH; G8997-GN-CH; J1650